=== PATIENT | female | born 1955 | race Caucasian/White ===

== ENCOUNTER 2017-03-26 13:41 | Emergency (ER) | payer OTHER ==
[~2017-03-26] VITALS: Ht 162.6 cm; Wt 94.4 kg
[~2017-03-26 13:41] MED LIST: AUGMENTIN875 MG PO
[2017-03-26 14:46] LABS: EOSINOPHIL (%) 1.5 % (0-5); EOSINOPHIL COUNT 0.2 K/uL (0-0.3); HEMATOCRIT 29.3 % (36.0-46.0); IMMATURE GRANULOCYTE (%) 0.8 % (0.0-0.7); IMMATURE GRANULOCYTE COUNT 0.1 K/uL; INSTRUMENT ABS NEUTROPHIL CT 12.2 K/uL; MCH 22.6 PG (29.0-34.0); MCHC 30.4 G/DL (30.0-36.0); MCV 74.6 FL (83-99); MEAN PLAT.VOLUME 9.4 uM^3 (9.5-12.4); MONOCYTE (%) 8.1 % (3-12); MONOCYTE COUNT 1.2 K/uL (0-0.8); NEUTROPHIL COUNT 12.2 K/uL (1.8-6.4); PLATELET COUNT 317 K/uL (156-360); RBC DIS.WIDTH-CV 16.9 % (11.8-14.6); RBC DIS.WIDTH-SD 45.4 % (39-53); RED BLOOD COUNT 3.93 M/uL (3.80-5.20); WHITE BLOOD COUNT 14.7 K/uL (4.1-10.2)
[2017-03-26 14:49] LABS: CHLORIDE 104 mEq/L (99-109); POTASSIUM 3.2 mEq/L (3.7-5.4); SODIUM 140 mEq/L (136-147)
[2017-03-26 14:50] LABS: GLUCOSE 151 mg/dL (70-99); PROTHROMBIN TIME 10.3 (9.2-11.2); PTT 24.9 (25-32)
[2017-03-26 14:52] LABS: ANION GAP 9 MEQ/L (2-14)
[2017-03-26 14:54] LABS: GFR ESTIMATE (CALCULATED) > 59 mL/min/
[2017-03-26 14:55] LABS: UREA NITROGEN (BUN) 8 mg/dL (9-23)
[2017-03-26 15:01] LABS: TROP-I INTERPRETATION NEGATIVE; TROPONIN-I < 0.01 ng/mL (0.0-0.30)
[2017-03-26 17:45] VITALS: BP 118/71
== END 2017-03-26 18:08 | disposition home or self-care (01) ==
LOC: EME 13:41
PROVIDERS: Emergency Medicine
DX: D64.9 Anemia, unspecified (principal); R55 Syncope and collapse; E11.9 Type 2 diabetes mellitus without complications; I10 Essential (primary) hypertension; K21.9 Gastro-esophageal reflux disease without esophagitis
CPT/HCPCS: 70450; 71010; 80048; 84484; 85025; 85610; 85730; 93005; 99281; 99284; J7030